=== PATIENT | male | born 1980 | race Caucasian/White ===

== ENCOUNTER 2017-01-03 00:08 | Emergency (ER) | payer OTHER ==
[~2017-01-03] VITALS: Ht 182.9 cm; Wt 98.0 kg
[2017-01-03 01:21] VITALS: BP 140/80
== END 2017-01-03 01:57 | disposition home or self-care (01) ==
LOC: ER 00:08
DX: H66.93 Otitis media, unspecified, bilateral (principal); H60.93 Unspecified otitis externa, bilateral
CPT/HCPCS: 99283